=== PATIENT | female | born 1990 | race Two or more races ===

== ENCOUNTER 2017-01-18 10:57 | Emergency (ER) | payer OTHER ==
[~2017-01-18] VITALS: Ht 167.6 cm; Wt 131.4 kg
[~2017-01-18 10:57] MED LIST: ALBUTEROL17 G1 IH; BENTYL20 MG PO; LEVAQUIN750 MG PO; MUCINEX1200 MG PO; OMEPRAZOLE20 MG PO; ONDANSETRON ODT4 MG PO; PERCOCET 5/31 TABLET PO; PRILOSEC20 MG PO; PROMETHAZINE HC25 M1 PO; PROTONIX40 MG PO; TESSALON PERLE100 MG PO; TRAMADOL HCL50 MG PO; ULTRAM50 MG PO; VENTOLIN HFA18 GM IH; ZOFRAN ODT4 MG PO; ZOFRAN ODT8 MG PO; ZOFRAN4 MG PO
[2017-01-18 11:58] LABS: HEMATOCRIT 49.4 % (36.0-46.0); MCH 29.8 PG (29.0-34.0); MCHC 34.2 G/DL (30.0-36.0); MCV 87.1 FL (83-99); MEAN PLAT.VOLUME 11.2 uM^3 (9.5-12.4); PLATELET COUNT 298 K/uL (156-360); RBC DIS.WIDTH-SD 38.5 % (39-53); RED BLOOD COUNT 5.67 M/uL (3.80-5.20); WHITE BLOOD COUNT 9.8 K/uL (4.1-10.2)
[2017-01-18 12:07] LABS: CHLORIDE 98 mEq/L (99-109); POTASSIUM 3.6 mEq/L (3.7-5.4); SODIUM 138 mEq/L (136-147)
[2017-01-18 12:10] LABS: GLUCOSE 116 mg/dL (70-99)
[2017-01-18 12:11] LABS: ANION GAP 12 MEQ/L (2-14); TOTAL BILIRUBIN 1.1 mg/dL (0.0-1.0)
[2017-01-18 12:13] LABS: ALKALINE PHOSPHATASE 51 IU/L (3-129); GFR ESTIMATE (CALCULATED) > 59 mL/min/
[2017-01-18 12:14] LABS: UREA NITROGEN (BUN) 14 mg/dL (9-23)
[2017-01-18 12:22] LABS: QUANTITATIVE HCG < 4.0 MIU/ML
[2017-01-18 14:42] LABS: ADD MIUA? YES; BILIRUBIN NEGATIVE; BLOOD SMALL; COLOR YELLOW ((YELLOW)); GLUCOSE (STRIP) NEGATIVE; KETONES 20; LEUKOCYTES NEGATIVE; NITRITE NEGATIVE; PROTEIN (STRIP) NEGATIVE; SPECIFIC GRAVITY 1.016 (1.000-1.030); UROBILINOGEN 0.2 MG/DL (0.2-1.0)
[2017-01-18 14:48] LABS: BACTERIA RARE /HPF; EPITHELIAL CELLS RARE /HPF; MUCUS NONE SEEN /LPF; RED BLOOD CELLS 0-5 /HPF (0-5); UCUL ADDED? NO; WHITE BLOOD CELLS 0-5 /HPF (0-5)
[2017-01-18] MEDS ORDERED: BENTYL20 MG PO (15:05)
[2017-01-18 15:45] VITALS: BP 132/82
== END 2017-01-18 15:45 | disposition home or self-care (01) ==
LOC: EME 10:57
DX: K52.9 Noninfective gastroenteritis and colitis, unspecified (principal); Z88.0 Allergy status to penicillin; Z88.1 Allergy status to other antibiotic agents
CPT/HCPCS: 74177; 80053; 81003; 84702; 85027; 99281; 99285; J2405; J2765; J7030

== ENCOUNTER → 2017-03-04 | Outpatient (CLI) | payer OTHER ==
[~2017-03-04] VITALS: Ht 162.6 cm; Wt 126.5 kg
[~2017-03-04] MED LIST changes: +FAMOTIDINE20 MG PO; +FLAGYL500 MG PO; +PHENADOZ25 MG PR; +PHENERGAN25 MG PR; +REGLAN5 MG PO
== END | disposition home or self-care (01) ==
LOC: AMB 08:40
PROC: 0DB68ZX Excision of Stomach, Via Natural or Artificial Opening Endoscopic, Diagnostic (ICD-10-PCS; principal; 2017-03-04)
DX: K31.84 Gastroparesis (principal); K29.70 Gastritis, unspecified, without bleeding; E66.01 Morbid (severe) obesity due to excess calories; Z68.42 Body mass index [BMI] 45.0-49.9, adult; J45.909 Unspecified asthma, uncomplicated
CPT/HCPCS: 84132; 88305; 88342 TC; J2405; J2765

== ENCOUNTER 2017-03-07 12:50 | Emergency (ER) | payer OTHER ==
[~2017-03-07] VITALS: Ht 167.6 cm; Wt 132.6 kg
[~2017-03-07 12:50] MED LIST changes: -PHENERGAN25 MG PR
[2017-03-07 13:11] LABS: HEMATOCRIT 40.5 % (36.0-46.0); HEMOGLOBIN 13.7 G/DL (11.9-15.5); MCH 30.4 PG (29.0-34.0); MCHC 33.8 G/DL (30.0-36.0); RBC DIS.WIDTH-CV 12.3 % (11.8-14.6); WHITE BLOOD COUNT 8.6 K/uL (4.1-10.2)
[2017-03-07 13:24] LABS: APPEARANCE SL.HAZY ((CLEAR)); BILIRUBIN NEGATIVE; BLOOD NEGATIVE; COLOR YELLOW ((YELLOW)); GLUCOSE (STRIP) NEGATIVE; KETONES 80; LEUKOCYTES TRACE; NITRITE NEGATIVE; PROTEIN (STRIP) 30; SPECIFIC GRAVITY 1.021 (1.000-1.030)
[2017-03-07 13:29] LABS: ALBUMIN 4.3 g/dL (3.2-4.8); CHLORIDE 97 mEq/L (99-109); SODIUM 137 mEq/L (136-147)
[2017-03-07 13:31] LABS: GLUCOSE 86 mg/dL (70-99); TOTAL PROTEIN 7.3 g/dL (6.4-8.3)
[2017-03-07 13:33] LABS: TOTAL BILIRUBIN 0.9 mg/dL (0.0-1.0)
[2017-03-07 13:35] LABS: ALKALINE PHOSPHATASE 49 IU/L (3-129); CREATININE 0.8 mg/dL (0.6-1.3); GFR ESTIMATE (CALCULATED) > 59 mL/min/
[2017-03-07 13:36] LABS: UREA NITROGEN (BUN) 11 mg/dL (9-23)
[2017-03-07 13:37] LABS: AST (GOT) 29 IU/L (2-34)
[2017-03-07 13:38] LABS: ALT (GPT) 22 IU/L (3-49); LIPASE 24 U/L (1.0-51.0)
[2017-03-07 13:39] LABS: BACTERIA RARE /HPF; EPITHELIAL CELLS 1+ /HPF; MUCUS 2+ /LPF; RED BLOOD CELLS 0-5 /HPF (0-5); UCUL ADDED? NO; WHITE BLOOD CELLS 0-5 /HPF (0-5)
[2017-03-07 13:48] LABS: QUANTITATIVE HCG < 4.0 MIU/ML
[2017-03-07 13:49] LABS: PLAT.SUFFICIENCY ADEQUATE; PLATELET COUNT 283 K/uL (156-360)
[2017-03-07] MEDS ORDERED: PHENERGAN25 MG PR (16:06)
[2017-03-07 16:22] VITALS: BP 144/88
== END 2017-03-07 16:32 | disposition home or self-care (01) ==
LOC: EME 12:50
DX: R11.2 Nausea with vomiting, unspecified (principal); J45.909 Unspecified asthma, uncomplicated; F17.200 Nicotine dependence, unspecified, uncomplicated; Z88.0 Allergy status to penicillin; Z90.49 Acquired absence of other specified parts of digestive tract
CPT/HCPCS: 80053; 81003; 83690; 84702; 85027; 99281; 99285; J2405; J2765; J7030